=== PATIENT | female | born 2000 | race Caucasian/White ===

== ENCOUNTER 2022-01-14 11:47 | Emergency (ER) | payer OTHER ==
[~2022-01-14] VITALS: Ht 162.6 cm; Wt 61.2 kg
[2022-01-14 12:58] VITALS: BP 126/82
[2022-01-14] MEDS ORDERED: ACETAMINOPHEN 500 MG TAB PO ONE (13:15)
[2022-01-14] MEDS ORDERED: METH500T22 PO (14:42)
[2022-01-14] MEDS ORDERED: IBUP600T27 PO (14:42)
== END 2022-01-14 14:51 | disposition home or self-care (01) ==
LOC: ER 11:47 → EDSEX 11:47 → EDBD 11:47 → ER 14:50
DX: S16.1XXA Strain of muscle, fascia and tendon at neck level, initial encounter (principal); S76.012A Strain of muscle, fascia and tendon of left hip, initial encounter; I48.91 Unspecified atrial fibrillation; Z91.040 Latex allergy status; V43.52XA Car driver injured in collision with other type car in traffic accident, initial encounter; Y93.89 Activity, other specified; Y92.410 Unspecified street and highway as the place of occurrence of the external cause; Y99.8 Other external cause status
CPT/HCPCS: 72040; 73502